=== PATIENT | female | born 1945 | race American Indian/Alaskan Native ===

== ENCOUNTER 2022-02-10 13:02 | Outpatient (CLI) | payer MEDICARE ==
[2022-02-10 14:07] LABS: Alanine Aminotransferase 20 units/L (7-56); BUN/Creatinine Ratio 21; Blood Urea Nitrogen 19 mg/dL (7-17); Calcium 9.2 mg/dL (8.4-10.2); Hemolysis Index 3
[2022-02-10 15:38] LABS: Chol/HDL Ratio 1.96 %; HDL Cholesterol 54 mg/dL (40-59); LDL Cholesterol,Direct 46 mg/dL (50-130)
== END 2022-02-10 13:03 | disposition home or self-care (01) ==
LOC: LAB 13:02
DX: I10 Essential (primary) hypertension (principal)
CPT/HCPCS: 36415; 80053; 80061; 83735; 84443